=== PATIENT | female | born 1955 | race Caucasian/White ===

== ENCOUNTER → 2024-01-12 13:03 | Outpatient (REF) | payer MEDICARE, OTHER, SELFPAY | LOC: HWEVLT 13:03 | PROVIDERS: ATTENDING PHYSICIAN Radiology Diagnostic Radiology | DX: I83.893 Varicose veins of bilateral lower extremities with other complications (principal) | CPT/HCPCS: 93970 ==

== ENCOUNTER → 2025-03-29 10:08 | Outpatient (REF) | payer MEDICARE, OTHER, SELFPAY | LOC: HWRAD 10:08 | PROVIDERS: ATTENDING PHYSICIAN Family Medicine; REFERRING PHYSICIAN Obstetrics & Gynecology | DX: Z78.0 Asymptomatic menopausal state (principal) | CPT/HCPCS: 77080 ==